=== PATIENT | female | born 1990 | race Caucasian/White ===

== ENCOUNTER 2018-06-18 10:40 | Inpatient (IN) | payer MEDICAID ==
[~2018-06-18] VITALS: Ht 157.5 cm; Wt 79.8 kg
[2018-06-18] MEDS ORDERED: LR 1,000 ML IV ONE (12:20)
[2018-06-18] MEDS ORDERED: LR 1,000 ML IV SCH ×2 (12:20→22:00)
[2018-06-18] MEDS ORDERED: LR 500 ML IV ONE ×2 (12:20→18:03)
[2018-06-18] MEDS ORDERED: NALBUPHINE HCL 10 MG/ML AMP IVP PRN (12:30)
[2018-06-18] MEDS ORDERED: TERBUTALINE SULFATE 1 MG/ML VIAL SUBCUT ONE (12:30)
[2018-06-18 12:31] VITALS: BP_SYST 121
[2018-06-18 13:41] LABS: BASOPHILS % (AUTO) 0.1 % (0.0-2.0); EOSINOPHILS % (AUTO) 0.2 % (0.0-4.0); HEMATOCRIT 36.1 % (36-48); HEMOGLOBIN 11.9 g/dL (12.0-16.0); LYMPHOCYTES # (AUTO) 1.4 K/uL (1.0-5.5); LYMPHOCYTES % (AUTO) 13.6 % (20.5-51.5); MEAN CORPUSCULAR HEMOGLOBIN 30 pg (27-31); MEAN CORPUSCULAR HGB CONC 33 % (32-36); MEAN CORPUSCULAR VOLUME 89 fL (79.0-98.0); MONOCYTES # (AUTO) 0.5 K/uL (0.0-1.0); MONOCYTES % (AUTO) 4.7 % (1.7-9.3); NEUTROPHILS # (AUTO) 8.4 K/uL (1.8-7.7); NEUTROPHILS % (AUTO) 81.4 % (40.0-70.0); PLATELET COUNT (AUTO) 224 K/uL (130-430); RED BLOOD CELL COUNT(AUTO) 4.04 MIL/uL (4.2-6.2); RED CELL DISTRIBUTION WIDTH 14.4 % (9.0-15.0); WHITE BLOOD COUNT (AUTO) 10.3 K/uL (4.8-10.8)
[2018-06-18] MEDS ORDERED: fentaNYL CITRATE/PF 100 MCG/2 ML AMP ONE ×2 (16:29→23:10)
[2018-06-18] MEDS ORDERED: ROPIVACAINE 0.2% 100 ML ONE (16:29)
[2018-06-18] MEDS ORDERED: AMPICILLIN SODIUM 2 GM in NS 100 ML IV ONE (17:00)
[2018-06-18] MEDS ORDERED: ACETAMINOPHEN 325 MG TABLET PO ONE (17:00)
[2018-06-18] MEDS ORDERED: AMPICILLIN SODIUM 2 GM VIAL ONE (17:01)
[2018-06-18] MEDS ORDERED: ACETAMINOPHEN 500 MG TABLET ONE (17:04)
[2018-06-18] MEDS: CLINDAMYCIN 900 mg/50mL D5W 50 ML IV SCH (17:51)
[2018-06-18] MEDS ORDERED: OXYTOCIN/0.9 % SODIUM CHLORIDE 1,000 ML IV SCH (18:00)
[2018-06-18] MEDS ORDERED: FENT2mCg/mL-ROPIVA0.2%/NS EPID 100 ML EP SCH (18:15)
[2018-06-18] MEDS ORDERED: ePHEDrine sulfate 50 MG/ML VIAL IVP PRN (18:15)
[2018-06-18] MEDS ORDERED: fentaNYL CITRATE/PF 100 MCG/2 ML AMP EP ONE (18:15)
[2018-06-18] MEDS ORDERED: CEFAZOLIN 2 GM IVPB PREMIX 50 ML IV ONE ×3 (21:45→21:55)
[2018-06-18] MEDS: AMPICILLIN SODIUM 1 GM in NS 50 ML IV SCH (21:53)
[2018-06-18] MEDS ORDERED: AMPICILLIN SODIUM 1 GM VIAL ONE (21:58)
[2018-06-18] MEDS ORDERED: NALOXONE HCL 1 MG in NACL 0.9% 1,000 ML IV PRN ×4 (22:00)
[2018-06-18] MEDS ORDERED: DIPHENHYDRAMINE INJ 50 MG/ML VIAL IVP PRN (22:00)
[2018-06-18] MEDS ORDERED: DIPHENHYDRAMINE HCL 50 MG CAPSULE PO PRN (22:00)
[2018-06-18] MEDS ORDERED: KETOROLAC TROMETHAMINE 60 MG/2 ML VIAL IM PRN (22:00)
[2018-06-18] MEDS ORDERED: ONDANSETRON HCL 4 MG/2 ML VIAL IVP PRN (22:00)
[2018-06-18] MEDS ORDERED: MEPERIDINE HCL/PF 25 MG/ML DISP.SYRIN IVP PRN ×2 (22:00)
[2018-06-18] MEDS ORDERED: HYDROmorphone 1 MG INJ. 1 MG/ML AMPUL IVP PRN (22:00)
[2018-06-18] MEDS ORDERED: NALOXONE HCL 0.4 MG/ML AMP (NARCAN) IVP PRN ×3 (22:00)
[2018-06-18] MEDS ORDERED: HYDROmorphone 2 MG/ML VIAL IVP PRN ×2 (22:00)
[2018-06-18 23:10] VITALS: BP_SYST 107
[2018-06-18] MEDS ORDERED: NS IRRIG SOLN 1000 ML IR ONE (23:10)
[2018-06-18] MEDS ORDERED: OXYTOCIN/0.9 % SODIUM CHLORIDE 20 UNITS/1,000 ML BAG IV ONE (23:10)
[2018-06-18] MEDS ORDERED: OXYTOCIN 10 UNIT/ML VIAL ONE (23:10)
[2018-06-18] MEDS ORDERED: LR 1,000 ML IV.SOLN IV ONE (23:10)
[2018-06-18] MEDS ORDERED: MORPHINE SULFATE 10MG/10ML PF AMP ONE (23:10)
[2018-06-18] MEDS ORDERED: ONDANSETRON HCL 4 MG/2 ML VIAL ONE (23:10)
[2018-06-18] MEDS ORDERED: HYDROmorphone 1 MG INJ. 1 MG/ML AMPUL ONE ×2 (23:41→23:54)
[2018-06-18] MEDS ORDERED: OXYTOCIN/0.9 % SODIUM CHLORIDE 1,000 ML IV ONE (23:49)
[2018-06-19] MEDS ORDERED: OXYTOCIN/0.9 % SODIUM CHLORIDE 1,000 ML IV SCH (00:45)
[2018-06-19] MEDS ORDERED: LANOLIN 7 GM OINT. TP PRN (00:45)
[2018-06-19] MEDS ORDERED: DIPH-TET-PERTUS Vaccine 0.5 ML VIAL (ADACEL) I.M. PRN (00:45)
[2018-06-19] MEDS ORDERED: MEASLES,MUMPS&RUBELLA VACC/PF 12500 UNIT/0.5 ML VIAL SUBQ PRN (00:45)
[2018-06-19] MEDS ORDERED: SENNOSIDES/DOCUSATE SODIUM 1 TAB TABLET(SENOKOT-S) PO PRN (00:45)
[2018-06-19] MEDS ORDERED: METHYLERGONOVINE MALEATE 0.2 MG TABLET PO PRN (00:45)
[2018-06-19] MEDS: CLINDAMYCIN 900 mg/50mL D5W 50 ML IV SCH ×2 (01:11→08:33)
[2018-06-19] MEDS: AMPICILLIN SODIUM 1 GM in NS 50 ML IV SCH ×3 (02:07→08:33)
[2018-06-19] MEDS ORDERED: AMPICILLIN SODIUM 1 GM VIAL ONE (02:14)
[2018-06-19] MEDS ORDERED: OXYCODONE/ACETAMINOPHEN 5-325 TABLET PO PRN (02:45)
[2018-06-19] MEDS: SIMETHICONE 80 MG TAB.CHEW PO PRN ×2 (06:17→08:35)
[2018-06-19 08:31] LABS: RED BLOOD CELL COUNT(AUTO) 3.76 MIL/uL (4.2-6.2); WHITE BLOOD COUNT (AUTO) 8.9 K/uL (4.8-10.8)
[2018-06-19 08:32] LABS: BASOPHILS % (AUTO) 0.1 % (0.0-2.0); EOSINOPHILS % (AUTO) 0.4 % (0.0-4.0); HEMATOCRIT 33.1 % (36-48); HEMOGLOBIN 10.8 g/dL (12.0-16.0); LYMPHOCYTES # (AUTO) 1.3 K/uL (1.0-5.5); LYMPHOCYTES % (AUTO) 14.3 % (20.5-51.5); MEAN CORPUSCULAR HEMOGLOBIN 29 pg (27-31); MEAN CORPUSCULAR HGB CONC 33 % (32-36); MEAN CORPUSCULAR VOLUME 88 fL (79.0-98.0); MONOCYTES % (AUTO) 4.4 % (1.7-9.3); NEUTROPHILS # (AUTO) 7.2 K/uL (1.8-7.7); NEUTROPHILS % (AUTO) 80.8 % (40.0-70.0); PLATELET COUNT (AUTO) 198 K/uL (130-430); RED CELL DISTRIBUTION WIDTH 14.2 % (9.0-15.0)
[2018-06-19 08:33] LABS: MONOCYTES # (AUTO) 0.4 K/uL (0.0-1.0)
[2018-06-19] MEDS: DOCUSATE SODIUM 100 MG CAPSULE PO PRN (08:35)
[2018-06-19] MEDS ORDERED: ROPIVACAINE 40 MG/20 ML AMP EP ONE (09:31)
[2018-06-19] MEDS: IBUPROFEN 600 MG TABLET PO SCH (17:58)
[2018-06-20] MEDS ORDERED: IBUPROFEN 600 MG TABLET PO SCH
[2018-06-20] MEDS: IBUPROFEN 600 MG TABLET PO SCH ×4 (00:09→18:00)
[2018-06-20] MEDS: OXYCODONE/ACETAMINOPHEN 5-325 TABLET PO PRN ×2 (01:20→08:06)
[2018-06-20] MEDS: DOCUSATE SODIUM 100 MG CAPSULE PO PRN (08:07)
[2018-06-21] MEDS: IBUPROFEN 600 MG TABLET PO SCH ×2 (01:02→06:29)
[2018-06-21] MEDS: OXYCODONE/ACETAMINOPHEN 5-325 TABLET PO PRN ×2 (03:14→07:55)
[2018-06-21] MEDS: DOCUSATE SODIUM 100 MG CAPSULE PO PRN (06:30)
[2018-06-21] MEDS: SIMETHICONE 80 MG TAB.CHEW PO PRN (07:55)
[2018-06-26] MEDS ORDERED: MEASLES,MUMPS&RUBELLA VACC/PF 12500 UNIT/0.5 ML VIAL SUBQ ONE (16:30)
[2018-06-26] MEDS ORDERED: MEPERIDINE HCL/PF 25 MG/ML DISP.SYRIN ONE (23:01)
== END 2018-06-26 16:50 | disposition home or self-care (01) | DRG 540 ==
LOC: SPU 10:40 → OBSVTOIN 12:15 → SPU 23:42 → UNDODISIN 06-21 10:10
PROVIDERS: ADMIT Obstetrics & Gynecology; ATTEND Obstetrics & Gynecology
PROC: 10D00Z1 Extraction of Products of Conception, Low, Open Approach (ICD-10-PCS; principal; 2018-06-18 22:00)
DX: O41.03X0 Oligohydramnios, third trimester, not applicable or unspecified (principal); O41.1230 Chorioamnionitis, third trimester, not applicable or unspecified; O62.2 Other uterine inertia; O77.0 Labor and delivery complicated by meconium in amniotic fluid; Z37.0 Single live birth; Z3A.40 40 weeks gestation of pregnancy
CPT/HCPCS: 36415; 59025; 81002-TC; 85025; 86592; 86762; 86886; 86900; 86901; 87070; 87070-TC; 87075-TC; 88307; 94760; A4618; G0378; J0290; J0690; J1170; J1885; J2175; J2274; J2300; J2310; J2405; J2590; J2795; J3010; J3490; J7030; J7120